=== PATIENT | male | born 1975 | race Two or more races ===

== ENCOUNTER 2021-11-10 10:09 | Emergency (ER) | payer SELFPAY ==
[2021-11-10] MEDS ORDERED: Tetracaine HCl/PF 0.5% 4 ML Bottle EYEBOTH ONE (10:24)
== END 2021-11-10 11:50 | disposition home or self-care (01) ==
LOC: MW.ED 10:09
DX: H02.816 Retained foreign body in left eye, unspecified eyelid (principal)
CPT/HCPCS: 99283